=== PATIENT | female | born 2000 | race African-American/Black ===

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

== ENCOUNTER 2019-12-04 11:51 | Emergency (ER) | payer MEDICAID, OTHER ==
[~2019-12-04] VITALS: Ht 162.6 cm; Wt 89.0 kg
[2019-12-04] MEDS ORDERED: METHOCARBAMOL 500MG TABLET PO ONE (12:45)
[2019-12-04] MEDS ORDERED: IBUPROFEN 800MG TABLET PO ONE (12:45)
[2019-12-04 14:16] VITALS: BP 109/65
== END 2019-12-04 14:17 | disposition home or self-care (01) ==
LOC: ER 11:51
DX: S13.4XXA Sprain of ligaments of cervical spine, initial encounter (principal); M54.5 Low back pain; M54.6 Pain in thoracic spine; R07.89 Other chest pain; V43.52XA Car driver injured in collision with other type car in traffic accident, initial encounter; Y93.89 Activity, other specified; Y92.410 Unspecified street and highway as the place of occurrence of the external cause
CPT/HCPCS: 71045; 72070; 72100; 81025; 99284